=== PATIENT | female | born 1950 | race Two or more races ===

== ENCOUNTER → 2020-01-16 08:26 | Outpatient (CLI) | payer OTHER | END | disposition home or self-care (01) | LOC: LAB 08:15 | PROVIDERS: ATTEND Internal Medicine | DX: D64.89 Other specified anemias (principal); Z20.828 Contact with and (suspected) exposure to other viral communicable diseases; I10 Essential (primary) hypertension; E11.9 Type 2 diabetes mellitus without complications; E78.00 Pure hypercholesterolemia, unspecified; N39.0 Urinary tract infection, site not specified; E03.8 Other specified hypothyroidism; R80.8 Other proteinuria; R19.5 Other fecal abnormalities ==

== ENCOUNTER 2020-01-16 10:11 | Outpatient (CLI) | payer OTHER | END 2020-01-16 10:19 | disposition home or self-care (01) | LOC: MAMO-SONO 10:11 | PROVIDERS: ATTEND Internal Medicine | DX: Z12.31 Encounter for screening mammogram for malignant neoplasm of breast (principal); N63.10 Unspecified lump in the right breast, unspecified quadrant; N63.20 Unspecified lump in the left breast, unspecified quadrant; N60.11 Diffuse cystic mastopathy of right breast; N60.12 Diffuse cystic mastopathy of left breast; M54.2 Cervicalgia ==

== ENCOUNTER 2020-01-16 11:24 | Outpatient (CLI) | payer OTHER | END 2020-01-16 11:33 | disposition home or self-care (01) | LOC: NUCLEAR 11:24 | PROVIDERS: ATTEND Internal Medicine | DX: M81.0 Age-related osteoporosis without current pathological fracture (principal) ==

== ENCOUNTER 2020-02-19 07:59 | Outpatient (CLI) | payer OTHER | END 2020-02-19 09:07 | disposition home or self-care (01) | LOC: LAB 07:59 | PROVIDERS: ATTEND Internal Medicine | DX: N18.3 Chronic kidney disease, stage 3 (moderate) (principal) ==

== ENCOUNTER 2020-02-19 08:56 | Outpatient (CLI) | payer OTHER | END 2020-02-19 14:05 | disposition home or self-care (01) | LOC: RAD 08:56 | PROVIDERS: ATTEND Internal Medicine | DX: M15.0 Primary generalized (osteo)arthritis (principal); M54.2 Cervicalgia; N18.3 Chronic kidney disease, stage 3 (moderate); N14.3 Nephropathy induced by heavy metals ==

== ENCOUNTER 2021-02-17 09:47 | Outpatient (CLI) | payer OTHER | END 2021-02-17 09:51 | disposition home or self-care (01) | LOC: RAD 09:47 | PROVIDERS: ATTEND Internal Medicine | DX: J01.80 Other acute sinusitis (principal); N64.89 Other specified disorders of breast; Z12.31 Encounter for screening mammogram for malignant neoplasm of breast ==

== ENCOUNTER 2021-02-17 16:23 | Outpatient (CLI) | payer OTHER | END 2021-02-17 16:28 | disposition home or self-care (01) | LOC: LAB 16:23 | PROVIDERS: ATTEND Internal Medicine | DX: D64.89 Other specified anemias (principal); E11.9 Type 2 diabetes mellitus without complications; N39.0 Urinary tract infection, site not specified; E03.8 Other specified hypothyroidism; E78.00 Pure hypercholesterolemia, unspecified; Z12.11 Encounter for screening for malignant neoplasm of colon; R19.5 Other fecal abnormalities; R80.8 Other proteinuria; E55.9 Vitamin D deficiency, unspecified ==

== ENCOUNTER 2022-03-10 15:20 | Outpatient (CLI) | payer OTHER | END 2022-03-10 15:25 | disposition home or self-care (01) | LOC: LAB 15:20 | PROVIDERS: ATTEND Internal Medicine | DX: N39.0 Urinary tract infection, site not specified (principal) ==

== ENCOUNTER 2022-03-11 07:46 | Outpatient (CLI) | payer OTHER | END 2022-03-11 07:47 | disposition home or self-care (01) | LOC: SONOGRAMA 07:46 | PROVIDERS: ATTEND Internal Medicine | DX: N39.0 Urinary tract infection, site not specified (principal); N10 Acute pyelonephritis ==

== ENCOUNTER 2025-04-25 07:29 | Outpatient (CLI) | payer OTHER | END 2025-04-25 07:30 | disposition home or self-care (01) | LOC: NUCLEAR 07:29 | PROVIDERS: ATTEND Internal Medicine | DX: I20.9 Angina pectoris, unspecified (principal) | CPT/HCPCS: 78452; 93017; A9500 ==